=== PATIENT | female | born 1940 | race Caucasian/White ===

== ENCOUNTER 2017-09-29 06:43 | Emergency (ER) | payer MEDICARE, OTHER ==
[~2017-09-29] VITALS: Ht 167.6 cm; Wt 86.5 kg
[~2017-09-29 06:43] MED LIST: AMIT50TA13 PO; COUM2.5T PO; COUM5TAB PO; DILTSR120 PO; FENO160T2 PO; GLUCCAP13 PO; HYDR-2768 PO; HYDR-2951 PO; LEVO.1 PO; OMPR20CCR PO; PREG25 OR; SIMV40 PO; SOTA80TA PO; VITA10002 PO
[2017-09-29 06:45] VITALS: BP 171/72; PULSE 63; RESP 15; TEMP 98.1; O2SAT 97
[2017-09-29] MEDS ORDERED: SOTA80TA PO (06:57)
[2017-09-29] MEDS ORDERED: APIX5TAB PO (06:58)
--- NOTE | 2017-09-29 07:12 | PD ---
HPI Chief Complaint: Head Injury Time Seen by Provider: 07:01 Travel History International Travel<30 days: No Contact w/Intl Traveler<30days: No Traveled to known affect area: No History of Present Illness HPI 77-year-old female arrives after a fall in which she struck her head upon a chair. The right parietal scalp was lacerated causing bleeding which resolved with application of a pressure dressing however resumed over the course of the night. Patient takes Eliquis. She states it is for coronary artery disease as well as a history of mini stroke. Onset sudden. Patient reports it was a trip and fall. PFSH Past Medical History Hx Anticoagulant Therapy: Yes Arthritis: Yes Atrial Fibrillation: Yes Heart Rhythm Problems: Yes (ATRIAL FIB) Cancer: No Cardiovascular Problems: Yes Cerebrovascular Accident: Yes Diabetes: No Diminished Hearing: No Endocrine: Yes Genitourinary: No Hypertension: Yes Immune Disorder: No Musculoskeletal: Yes Neurologic: Yes Psychiatric: No Reproductive: No Respiratory: Yes Thyroid Disease: Yes ?: Not Past Surgical History Abdominal Surgery: Yes (OPEN KELLEE) Gynecologic Surgery: Yes (HYSTERECTOMY) Hysterectomy: Yes Oral Surgery: Yes (T&A ; EGD; EXCISION LESION TONGUE) Pacemaker: No Social History Alcohol Use: Yes Tobacco Use: Yes Substance Use: No Allergies-Medications (Allergen,Severity, Reaction): Coded Allergies: No Known Allergies (Verified Allergy, Unknown, 09/29/17) Reported Meds & Prescriptions Reported Meds & Active Scripts Active Reported Eliquis (Apixaban) 5 Mg Tab 5 Mg PO BID Sotalol (Sotalol HCl) 80 Mg Tab 80 Mg PO BID Review of Systems Except as stated in HPI: all other systems reviewed are Neg General / Constitutional: No: Fever HENT: No: Sore Throat Physical Exam Narrative GENERAL: 77-year-old female pleasant well-nourished well-developed no acute distress Vital Signs Date Time Temp Pulse Resp B/P (MAP) Pulse Ox O2 Delivery O2 Flow Rate FiO2 09/29/17 06:45 98.1 63 15 171/72 (105) 97 SKIN: Warm and dry. HEAD: Atraumatic. Normocephalic. There is a laceration overlying the parietal scalp. EYES: Pupils equal and round. No scleral icterus. No injection or drainage. ENT: No nasal bleeding or discharge. Mucous membranes pink and moist. NECK: Trachea midline. No JVD. CARDIOVASCULAR: Regular rate and rhythm. RESPIRATORY: No accessory muscle use. Clear to auscultation. Breath sounds equal bilaterally. GASTROINTESTINAL: Abdomen soft, non-tender, nondistended. Hepatic and splenic margins not palpable. MUSCULOSKELETAL: Extremities without clubbing, cyanosis, or edema. No obvious deformities. NEUROLOGICAL: Awake and alert. No obvious cranial nerve deficits. Motor grossly within normal limits. Five out of 5 muscle strength in the arms and legs. Normal speech. PSYCHIATRIC: Appropriate mood and affect; insight and judgment normal. Data Data Last Documented VS Vital Signs Date Time Temp Pulse Resp B/P (MAP) Pulse Ox O2 Delivery O2 Flow Rate FiO2 09/29/17 06:45 98.1 63 15 171/72 (105) [address] Brain W/O Iv Contrast(Rout) (09/29/17 07:08) Sodium Chloride 0.9% Flush (Ns Flush) (09/29/17 07:15) Lidocai-Epi 1%-1:100,000 Inj (Xylocaine- (09/29/17 07:15) Tetanus/Diphtheria Tox Adult (Tetanus/Di (09/29/17 07:15) Lidocai-Epi 1%-1:100,000 Inj (Xylocaine- (09/29/17 07:30) MDM Medical Decision Making Medical Screen Exam Complete: Yes Emergency Medical Condition: Yes Medical Record Reviewed: Yes Differential Diagnosis Laceration, subdural hemorrhage, contusion, epidural hemorrhage, skull fracture Narrative Course HEAD CT: CONCLUSION: 1. No acute hemorrhage, acute infarct, mass effect or extra axial fluid collections. 2. 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 3. Mild periventricular white matter small vessel ischemic changes bilaterally. 4. 6 mm calcification within left frontal region which is indeterminate but raises the possibility of calcified aneurysm. Laceration repaired by the undersigned. There is about a 4 cm laceration overlying the right parietal scalp. Procedures Procedure Narrative LACERATION LOCATION: Right parietal scalp LENGTH: 4 NUMBER OF STITCHES/ISSA: 4 REPAIR: The area of the laceration was prepped with Betadine and sterilely draped. The laceration was infiltrated with Lidocaine with epinephrine. The wound was copiously irrigated and explored without evidence of foreign body, tendon injury or neurovascular injury. The wound was closed using issa. This was a single layer repair. A sterile dressing was applied. The patient was advised to keep the dressing clean and dry. Patient tolerated the procedure well. Diagnosis Primary Impression: Laceration of scalp Qualified Codes: S01.01XA - Laceration without foreign body of scalp, initial encounter Additional Impression: Fall Qualified Codes: W19.XXXA - Unspecified fall, initial encounter Referrals: RETURN TO ER FOR STAPLE REMOVAL IN 10 DAYS Med/Other Pt SpecificInfo: No Change to Meds Disposition: 01 DISCHARGE HOME Condition: Stable Pierre Man MD Sep 29, 2017 07:12
[2017-09-29] MEDS ORDERED: LIDOCAINE 1%/EPINEPHrine 1:100,000 SOLN 20 ML VIAL INFIL ONE (07:15)
[2017-09-29] MEDS ORDERED: SODIUM CHLORIDE 0.9% FLUSH 10 ML FLUSH IVF PRN (07:15)
[2017-09-29] MEDS ORDERED: TETANUS/DIPHTHERIA TOXOID ADULT 0.5 ML VIAL IM ONE (07:15)
[2017-09-29] MEDS ORDERED: LIDOCAINE 1%/EPINEPHrine 1:100,000 SOLN 30 ML VIAL INFIL ONE (07:30)
--- NOTE | 2017-09-29 08:37 | RADRPT ---
EXAM DATE/TIME: 09/29/2017 07:33 [facility] COMPARISON: No previous studies available for comparison. INDICATIONS : Patient fell, laceration to right side of head, on blood thinner medication RADIATION DOSE: 38.24 CTDIvol (mGy) MEDICAL HISTORY : Cardiovascular disease. Hypertension. Cerebrovascular disease. SURGICAL HISTORY : Hysterectomy. Cholecystectomy. ENCOUNTER: Initial ACUITY: 1 day PAIN SCALE: 4/10 LOCATION: Right cranial TECHNIQUE: Multiple contiguous axial images were obtained of the head. Using automated exposure control and adj ustment of the mA and/or kV according to patient size, radiation dose was kept as low as reasonably a chievable to obtain optimal diagnostic quality images. DICOM format image data is available electro nically for review and comparison. FINDINGS: CEREBRUM: The ventricles are normal for age. There is a large old right middle cerebral artery infarct with en cephalomalacia. Mild periventricular white matter small vessel ischemic changes are noted bilaterally . There is a 6 mm calcified density within the left frontal region which is indeterminate. Calcified aneurysm is in the differential. No evidence of midline shift, mass lesion, hemorrhage or acute infar ction. No extra-axial fluid collections are seen. POSTERIOR FOSSA: The cerebellum and brainstem are intact. The 4th ventricle is midline. The cerebellopontine angle i s unremarkable. EXTRACRANIAL: The visualized portion of the orbits is intact. SKULL: The calvaria is intact. No evidence of skull fracture. CONCLUSION: 1. No acute hemorrhage, acute infarct, mass effect or extra axial fluid collections. 2. 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 3. Mild periventricular white matter small vessel ischemic changes bilaterally. 4. 6 mm calcification within left frontal region which is indeterminate but raises the possibility of calcified aneurysm. Santos Hays MD on September 29, 2017 at 8:29 Board Certified Radiologist. This report was verified electronically.
== END 2017-09-29 09:03 | disposition home or self-care (01) ==
LOC: NEPE 06:43
DX: S01.01XA Laceration without foreign body of scalp, initial encounter (principal); I48.91 Unspecified atrial fibrillation; I25.10 Atherosclerotic heart disease of native coronary artery without angina pectoris; I10 Essential (primary) hypertension; E07.9 Disorder of thyroid, unspecified; W01.190A Fall on same level from slipping, tripping and stumbling with subsequent striking against furniture, initial encounter; Z23 Encounter for immunization; Z72.0 Tobacco use; Z79.01 Long term (current) use of anticoagulants; Z87.39 Personal history of other diseases of the musculoskeletal system and connective tissue; Z86.73 Personal history of transient ischemic attack (TIA), and cerebral infarction without residual deficits; Z87.09 Personal history of other diseases of the respiratory system
CPT/HCPCS: 12002; 70450; 90471; 90714

== ENCOUNTER 2017-10-09 07:15 | Emergency (ER) | payer MEDICARE, OTHER ==
[~2017-10-09] VITALS: Ht 167.6 cm; Wt 84.0 kg
[~2017-10-09 07:15] MED LIST changes: -AMIT50TA13 PO; +APIX5TAB PO; -COUM2.5T PO; -COUM5TAB PO; -DILTSR120 PO; -FENO160T2 PO; -GLUCCAP13 PO; -HYDR-2768 PO; -HYDR-2951 PO; -LEVO.1 PO; -OMPR20CCR PO; -PREG25 OR; -SIMV40 PO; -VITA10002 PO
[2017-10-09 07:19] VITALS: BP 187/77; PULSE 72; RESP 18; TEMP 97.4; O2SAT 100
--- NOTE | 2017-10-09 07:50 | PD ---
HPI Chief Complaint: Wound/Suture/Staple Re-Check Time Seen by Provider: 07:39 Travel History International Travel<30 days: No Contact w/Intl Traveler<30days: No Traveled to known affect area: No History of Present Illness HPI 77-year-old female presents emergency department status post laceration to the right parietal scalp 10 days ago. Patient had 5 issa placed. She is here for wound check and staple removal. She has no complaints. She has no known drug allergies PFSH Past Medical History Hx Anticoagulant Therapy: Yes (eloquis) Arthritis: Yes Atrial Fibrillation: Yes Heart Rhythm Problems: Yes (ATRIAL FIB) Cancer: No Cardiovascular Problems: Yes Cerebrovascular Accident: Yes Diabetes: No Diminished Hearing: No Endocrine: Yes Genitourinary: No Hypertension: Yes Immune Disorder: No Musculoskeletal: Yes Neurologic: Yes Psychiatric: No Reproductive: No Respiratory: Yes Thyroid Disease: Yes Past Surgical History Abdominal Surgery: Yes (OPEN KELLEE) Gynecologic Surgery: Yes (HYSTERECTOMY) Hysterectomy: Yes Oral Surgery: Yes (T&A ; EGD; EXCISION LESION TONGUE) Pacemaker: No Social History Alcohol Use: Yes Tobacco Use: Yes Substance Use: No Allergies-Medications (Allergen,Severity, Reaction): Coded Allergies: No Known Allergies (Verified Allergy, Unknown, 09/29/17) Reported Meds & Prescriptions Reported Meds & Active Scripts Active Reported Eliquis (Apixaban) 5 Mg Tab 5 Mg PO BID Sotalol (Sotalol HCl) 80 Mg Tab 80 Mg PO BID Review of Systems Except as stated in HPI: all other systems reviewed are Neg General / Constitutional: No: Fever Eyes: No: Visual changes HENT: No: Headaches Cardiovascular: No: Chest Pain or Discomfort Respiratory: No: Shortness of Breath Gastrointestinal: No: Abdominal Pain Genitourinary: No: Dysuria Musculoskeletal: No: Pain Skin: No Rash Neurologic: No: Weakness Psychiatric: No: Depression Endocrine: No: Polydipsia Hematologic/Lymphatic: No: Easy Bruising Physical Exam Narrative GENERAL: Patient is in good spirits in no acute distress. SKIN: Warm and dry. Normal color. Normal turgor. Patient has a well-healed laceration to the right parietal scalp with 5 issa present. There is no signs of wound dehiscence or cellulitis. HEAD: Atraumatic. Normocephalic. Nontender. EYES: Pupils equal and round. No scleral icterus. No injection or drainage. ENT: No nasal bleeding or discharge. Mucous membranes pink and moist. Pharynx is clear. Airways patent NECK: Trachea midline. Supple CARDIOVASCULAR: Regular rate and rhythm. RESPIRATORY: No accessory muscle use. MUSCULOSKELETAL: Extremities without clubbing, cyanosis, or edema. No obvious deformities. NEUROLOGICAL: Awake and alert. No obvious cranial nerve deficits. Motor grossly within normal limits. Five out of 5 muscle strength in the arms and legs. Normal speech. PSYCHIATRIC: Appropriate mood and affect; insight and judgment normal. Data Data Last Documented VS Vital Signs Date Time Temp Pulse Resp B/P (MAP) Pulse Ox O2 Delivery O2 Flow Rate FiO2 10/09/17 07:19 97.4 72 18 187/77 113) 100 MDM Medical Decision Making Medical Screen Exam Complete: Yes Emergency Medical Condition: Yes Medical Record Reviewed: Yes Differential Diagnosis Scalp laceration. Wound check. Staple removal Narrative Course [place] are removed without difficulty. No further medical treatment is warranted. Diagnosis Primary Impression: Encounter for removal of issa Patient Instructions: General Instructions Additional Instructions: [place] are removed without difficulty. No further medical treatment is warranted. Med/Other Pt SpecificInfo: Prescription(s) given, Wound Care Disposition: DISCHARGE HOME Condition: Stable Mikcy Fernandez October 09, 2017 07:50
== END 2017-10-09 08:01 | disposition home or self-care (01) ==
LOC: NEPD 07:15
DX: S01.01XD Laceration without foreign body of scalp, subsequent encounter (principal); X58.XXXD Exposure to other specified factors, subsequent encounter; Z48.02 Encounter for removal of sutures
CPT/HCPCS: 99281